=== PATIENT | male | born 1980 | race Caucasian/White ===

== ENCOUNTER 2020-11-05 20:59 | Emergency (ER) | payer OTHER ==
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
[2020-11-05] MEDS ORDERED: ALPRAZolam 0.25 MG TABLET PO STA (22:18)
[2020-11-05] MEDS ORDERED: ACETAMINOPHEN 325 MG TABLET PO STA (22:18)
[2020-11-05] MEDS ORDERED: IBUPROFEN 600 MG TABLET PO STA (22:18)
[2020-11-05 22:45] VITALS: BP 148/104
== END 2020-11-05 22:49 | disposition home or self-care (01) ==
LOC: ED 20:59
DX: S20.219A Contusion of unspecified front wall of thorax, initial encounter (principal); V43.52XA Car driver injured in collision with other type car in traffic accident, initial encounter; Y93.89 Activity, other specified; Y92.410 Unspecified street and highway as the place of occurrence of the external cause; F41.1 Generalized anxiety disorder
CPT/HCPCS: 99282; 99283; A9270